=== PATIENT | male | born 1955 | race Caucasian/White ===

== ENCOUNTER 2019-08-28 09:32 | Inpatient (IN) ==
[2019-08-29] MEDS ORDERED: TYLENOL PO PRN (13:23)
[2019-08-29] MEDS ORDERED: NICODERM PATCH TD PRN (13:23)
[2019-08-29] MEDS ORDERED: ATARAX PO PRN (13:23)
[2019-08-29] MEDS ORDERED: BENTYL PO PRN (13:23)
[2019-08-29] MEDS ORDERED: ROBAXIN PO PRN (13:23)
[2019-08-29] MEDS ORDERED: PHENOBARBITAL IV PRN (13:23)
[2019-08-29] MEDS ORDERED: ZOFRAN ODT PO PRN (13:23)
[2019-08-29] MEDS ORDERED: SINEMET 25/100 PO PRN (13:23)
[2019-08-29] MEDS ORDERED: MOTRIN PO PRN (13:23)
[2019-08-29] MEDS ORDERED: D5W 1,000 ML IV PRN (13:23)
[2019-08-29] MEDS ORDERED: SENOKOT PO PRN (13:23)
[2019-08-29] MEDS ORDERED: DESYREL PO PRN (13:23)
[2019-08-29] MEDS ORDERED: ZOFRAN IV PRN (13:23)
[2019-08-29] MEDS ORDERED: TUBERSOL ID ONE (13:23)
[2019-08-29] MEDS ORDERED: DULCOLAX PR PRN (13:23)
[2019-08-29] MEDS ORDERED: MAALOX PLUS LIQUID PO PRN (13:23)
[2019-08-29] MEDS ORDERED: SEROQUEL PO PRN (13:23)
[2019-08-29] MEDS ORDERED: LIBRIUM PO PRN (13:23)
[2019-08-29] MEDS ORDERED: IMODIUM PO PRN (13:23)
[2019-08-29 14:01] LABS: HEMATOCRIT 34.1 % (42.0-52.0); HEMOGLOBIN 11.2 g/dL (14.0-18.0); MCH 30.4 PG (27-31); MCHC 32.8 g/dL (33-37); MCV 92.7 FL (81-99); MPV 9.4 FL (7.4-10.4); RBC 3.68 XMIL (4.7-6.1); RDW 13.2 % (11.5-14.5); WBC 6.92 X1000 (4.8-10.8)
[2019-08-29 14:21] LABS: AMYLASE 41 U/L (20-200); LIPASE 22 U/L (13-60)
[2019-08-29 14:25] LABS: AGAP 10; ALBUMIN 3.8 g/dL (3.5-5.0); ALKALINE PHOSPHATASE 86 U/L (32-122); BUN 7 mg/dL (8-22); CALCIUM 9.1 mg/dL (8.8-10.2); CHLORIDE 104 mmol/L (98-107); COSMO 280; CREATININE 0.9 mg/dL (0.7-1.2); ESTIMATED GFR > 60; GLUCOSE 115 mg/dL (70-104); GOT 20 U/L (10-34); GPT 9 U/L (10-44); SODIUM 141 mmol/L (136-145); TCO2 27 mmol/L (25-35)
[2019-08-29] MEDS: SUBOXONE 2 MG/0.5 MG FILM SL SCH (14:28)
[2019-08-29] MEDS: CYMBALTA PO SCH (14:28)
[2019-08-29 14:32] LABS: URINE SOURCE VOIDED
[2019-08-29 14:36] LABS: BILIRUBIN URINE NEGATIVE (NEGATIVE); BLOOD URINE 3+ (NEGATIVE); CLARITY CLEAR (CLEAR); COLOR YELLOW; GLUCOSE URINE NEGATIVE (NEGATIVE); KETONE URINE 1+(Small) mg/dL (NEGATIVE); LEUKOCYTES URINE NEGATIVE (NEGATIVE); NITRITE URINE NEGATIVE (NEGATIVE); PH URINE 6.5; PROTEIN URINE NEGATIVE (NEGATIVE); UROBILINOGEN URINE NORMAL
[2019-08-29 14:42] LABS: URINE BACTERIA NEGATIVE /HFP; URINE EPITHELIAL CELLS <10 /HPF (<10); URINE WBC <10 /HPF (<10)
[2019-08-29 14:45] LABS: INR 1.1; PROTIME 14.8 Seconds (11.0-16.0)
[2019-08-29 15:00] LABS: UR AMPHETAMINES QUAL NONE DETECTED (NONE DETECT); UR BARBITUATES QUAL NONE DETECTED (NONE DETECT); UR BENZODIAZEPIN QUAL NONE DETECTED (NONE DETECT); UR CANNABINOIDS QUAL PRESUMPTIVE POSITIVE (NONE DETECT); UR COCAINE QUAL NONE DETECTED (NONE DETECT); UR METHADONE QUAL NONE DETECTED (NONE DETECT); UR METHAMPHETAMINE QUAL NONE DETECTED (NONE DETECT); UR OPIATES QUAL PRESUMPTIVE POSITIVE (NONE DETECT); UR OXYCODONE QUAL PRESUMPTIVE POSITIVE (NONE DETECT); UR PCP QUAL NONE DETECTED (NONE DETECT); UR PROPOXYPHENE QUAL NONE DETECTED (NONE DETECT); UR TCA QUAL NONE DETECTED (NONE DETECT)
[2019-08-29] MEDS ORDERED: FLU VACCINE IM ONE (16:15)
[2019-08-29] MEDS: ATARAX PO SCH (20:50)
[2019-08-29] MEDS: DESYREL PO SCH (20:50)
[2019-08-30] MEDS: CYMBALTA PO SCH ×2 (01:22→13:38)
[2019-08-30] MEDS: SUBOXONE 2 MG/0.5 MG FILM SL SCH ×2 (01:22→13:38)
[2019-08-30] MEDS: PROTONIX PO SCH (06:14)
[2019-08-30] MEDS: SYNTHROID PO SCH ×2 (06:14)
[2019-08-30] MEDS ORDERED: KLOR-CON PO ONE (08:18)
[2019-08-30] MEDS ORDERED: SYNTHROID PO SCH (09:00)
[2019-08-30] MEDS: FOLIC ACID PO SCH (09:30)
[2019-08-30] MEDS: FLORINEF PO SCH (09:30)
[2019-08-30] MEDS: VITAMIN B-1 PO SCH (09:30)
[2019-08-30] MEDS: THERA M PLUS PO SCH (09:30)
[2019-08-30] MEDS: ATARAX PO SCH ×2 (09:31→20:38)
[2019-08-30] MEDS: DESYREL PO SCH (20:38)
[2019-08-31] MEDS: SUBOXONE 2 MG/0.5 MG FILM SL SCH ×2 (02:19→14:06)
[2019-08-31] MEDS: CYMBALTA PO SCH ×2 (02:20→14:06)
[2019-08-31] MEDS: PROTONIX PO SCH ×2 (05:56→06:08)
[2019-08-31] MEDS: SYNTHROID PO SCH ×4 (05:56→06:09)
[2019-08-31] MEDS: FOLIC ACID PO SCH (09:19)
[2019-08-31] MEDS: THERA M PLUS PO SCH (09:20)
[2019-08-31] MEDS: VITAMIN B-1 PO SCH (09:20)
[2019-08-31] MEDS: ATARAX PO SCH ×2 (09:20→20:43)
[2019-08-31] MEDS: FLORINEF PO SCH (09:20)
--- NOTE | 2019-08-31 09:21 | PROGRESS NOTE ---
DATE: 08/30/2019 SUBJECTIVE: Patient notes he is still having some symptoms. He is still having some nausea, abdominal pain. Still feels though his skin is crawling at times, although Suboxone helps. Notes that he does not think he is on enough Suboxone as he used to be on 8 twice a day. PHYSICAL EXAMINATION: Vital Signs: Reviewed. Temperature 97 degrees, pulse 85, respiratory rate 18, blood pressure 132/80. General: Patient is awake, alert. He is in no current respiratory distress. HEENT: Normocephalic. Neck: Supple. Cardiovascular: Regular rate. Chest: Clear. Abdomen: Soft. Extremities: Moves all extremities. ASSESSMENT: 1. Nausea and vomiting. 2. Abdominal pain. 3. Paresthesias. 4. Paroxysmal sweating. 5. Chronic pain. 6. Opiate abuse withdrawal and stabilization. PLAN: We will continue patient in the hospital. Continue to wean Suboxone as tolerated. Discussed with patient that yes, although he was on a higher dose, eventually he has to wean totally off and therefore we will continue the same plan. cc: Olu Leyva MD
[2019-08-31] MEDS: DESYREL PO SCH (20:44)
[2019-09-01] MEDS: CYMBALTA PO SCH ×3 (01:36→23:49)
[2019-09-01] MEDS: SUBOXONE 2 MG/0.5 MG FILM SL SCH (01:36)
[2019-09-01] MEDS: PROTONIX PO SCH (07:18)
[2019-09-01] MEDS: SYNTHROID PO SCH ×2 (07:18)
[2019-09-01] MEDS: ATARAX PO SCH ×2 (08:44→21:36)
[2019-09-01] MEDS: VITAMIN B-1 PO SCH (08:45)
[2019-09-01] MEDS: FLORINEF PO SCH (08:45)
[2019-09-01] MEDS: FOLIC ACID PO SCH (08:45)
[2019-09-01] MEDS: THERA M PLUS PO SCH (08:45)
[2019-09-01] MEDS ORDERED: TORADOL IV PRN (10:16)
[2019-09-01] MEDS: SUBUTEX SL SCH ×2 (12:32→21:33)
--- NOTE | 2019-09-01 16:31 | PROGRESS NOTE ---
DATE: 08/31/2019 SUBJECTIVE: Patient notes he still feels bad. Having lots of muscle aches and myalgias, still having back and hip pain. Denies any fevers, chills. Denies any sweating. Denies any skin crawling. PHYSICAL EXAMINATION: Vital Signs: Reviewed. He is awake, alert. He is in no respiratory distress. HEENT: Normocephalic. Neck: Supple. Cardiovascular: Regular rate. No murmurs. Chest: Chest clear, nonlabored. Abdomen: Soft, nondistended. Extremities: Moves all extremities. Neurologic: No focal changes. ASSESSMENT: 1. Hypokalemia resolved. 2. Nausea vomiting. 3. Abdominal pain. 4. Myalgias. 5. Paresthesias. 6. Chronic pain. 7. Chronic opiate abuse. PLAN: We will continue to wean Suboxone as tolerated. Continue counseling. Further orders as needed. cc: Olu Leyva MD
--- NOTE | 2019-09-01 19:51 | HISTORY AND PHYSICAL ---
CHIEF COMPLAINT: Nausea and vomiting. HISTORY OF PRESENT ILLNESS: The patient is a 64-year-old male who [facility]. The patient notes that he has been overtaking Suboxone and states he has to stop. He has been trying to cut down on his own, but has not been successful. He complains of muscle aches, nausea. No real vomiting. He has had some abdominal pain. SOCIAL HISTORY: The patient is , lives at home. He is on disability. He lives in [place]. PAST MEDICAL HISTORY: History of throat cancer in 2016, had lost from 235 down to 166 in approximately 4 months due to chemotherapy and radiation. He is in remission for the last year and a half. He has hypothyroidism, depression, chronic pain and recurrent anemia. PAST SURGICAL HISTORY: He has had multiple orthopedic surgeries including left shoulder, bilateral total knee, left ankle surgery 6 different times. He has had cervical spine surgery. MEDICATIONS: Synthroid 125, multivitamin daily, gabapentin 600 t.i.d., Cymbalta 30 b.i.d., trazodone 150, hydroxyzine, Requip and Florinef 0.1 b.i.d. ALLERGIES: No known drug allergies. REVIEW OF SYSTEMS: CINA score is elevated at 16 secondary to nausea, vomiting, abdominal pain, myalgias, paresthesias, occasional shaking chills, unable to sit still. He has some difficulty concentrating, decreased oral intake. Denies any chest pain or palpitations. Denies any fevers. Denies headaches, blurred vision or change in vision. Denies any focalized numbness, tingling or weakness in his extremities. SUBSTANCE ABUSE HISTORY: The patient has been in treatment in 1999 in [place] for 17 days, stayed sober less than a week. He was in treatment in 2001 in [facility] due to overusing Fentanyl. He remained sober for 3 to 4 months. He was in treatment again in 2018 at [place] and has been on Suboxone. FAMILY HISTORY: Noncontributory. PHYSICAL EXAMINATION: VITAL SIGNS: Reviewed. GENERAL: The patient is awake, alert. He is in no current respiratory distress, but he is somewhat ill-appearing. He is fidgety, anxious, nervous, unable sit still. Denies any chest pains or palpitations. HEENT: Normocephalic. NECK: Supple. CARDIOVASCULAR: Regular rate. CHEST: Clear. ABDOMEN: Soft. EXTREMITIES: Moves all extremities. NEUROLOGIC: No changes. ASSESSMENT: 1. Nausea and vomiting. 2. Abdominal pain. 3. Myalgias. 4. Paresthesias. 5. Paroxysmal sweating. 6. Opiate abuse, withdrawal and stabilization. 7. Hypertension. 8. Chronic depression. 9. Chronic pain. PLAN: We are going to admit the patient to the hospital. We will continue him on Suboxone, but we will slowly wean this down over the next several days. Expect him to be in the hospital 5-7 days due to this process. cc: Olu Leyva MD
[2019-09-01] MEDS: DESYREL PO SCH (21:37)
[2019-09-02] MEDS: PROTONIX PO SCH ×2 (05:52→07:29)
[2019-09-02] MEDS: SYNTHROID PO SCH ×4 (05:52→07:30)
[2019-09-02] MEDS: CYMBALTA PO SCH ×2 (07:29→14:48)
[2019-09-02] MEDS: SUBUTEX SL SCH (09:34)
[2019-09-02] MEDS: VITAMIN B-1 PO SCH (09:34)
[2019-09-02] MEDS: THERA M PLUS PO SCH (09:34)
[2019-09-02] MEDS: FOLIC ACID PO SCH (09:34)
[2019-09-02] MEDS: FLORINEF PO SCH (09:34)
[2019-09-02] MEDS: ATARAX PO SCH ×2 (09:34→20:55)
--- NOTE | 2019-09-02 13:59 | PROGRESS NOTE ---
DATE: 09/02/2019 SUBJECTIVE: The patient notes that he still is hurting in his back and legs. He states that he is feeling okay. He denies any tremors or sweating episodes but states that he still does not overall feel well. PHYSICAL EXAMINATION: Vital Signs: Temperature 98.7, pulse 73, respiratory 18, and blood pressure 125/70. General: The patient is awake and currently in no respiratory distress. HEENT: Normocephalic. Neck: Supple. CV: Regular rate. Chest: Clear. Abdomen. Soft. Extremities: He moves all extremities. ASSESSMENT: 1. Nausea and vomiting. 2. Abdominal pain. 3. Myalgias. 4. Paresthesias. 5. Paroxysmal sweating. 6. Opiate abuse withdrawal and stabilization. We will continue to wean. 7. Hypertension. 8. Chronic depression. 9. Chronic pain. PLAN: Since he no longer has an IV we are going to switch his Toradol to IM. We will continue to follow. We will continue to wean his Suboxone on a scheduled routine basis. Discussed with the patient that unfortunately he will have some withdrawal symptoms but the plan is to wean him totally off while he is in the hospital and hopefully transition to rehab on Wednesday, in 2 days. Continue to wean to Subutex 1 mg today and 1 mg tomorrow and then hopefully discharge from there. cc: Olu Leyva MD
[2019-09-02] MEDS: TORADOL IM PRN (18:21)
[2019-09-02] MEDS: DESYREL PO SCH (20:55)
[2019-09-03] MEDS: CYMBALTA PO SCH ×3 (01:03→23:09)
[2019-09-03] MEDS: SYNTHROID PO SCH ×2 (06:17)
[2019-09-03] MEDS: PROTONIX PO SCH (06:17)
[2019-09-03] MEDS: FLORINEF PO SCH ×2 (07:58→08:09)
[2019-09-03] MEDS: SUBUTEX SL SCH (07:59)
[2019-09-03] MEDS: FOLIC ACID PO SCH ×2 (07:59→08:09)
[2019-09-03] MEDS: VITAMIN B-1 PO SCH (07:59)
[2019-09-03] MEDS: ATARAX PO SCH ×2 (07:59→20:51)
[2019-09-03] MEDS: THERA M PLUS PO SCH (08:00)
--- NOTE | 2019-09-03 18:08 | PROGRESS NOTE ---
DATE: 09/03/2019 SUBJECTIVE: Patient notes that he is feeling better. Toradol did help. He is still having some muscle pain and back pain. Denies any current withdrawal symptoms. PHYSICAL EXAMINATION: Vital Signs: Reviewed. He is awake, alert. He is in no current respiratory distress. HEENT: Normocephalic. Neck: Supple. Cardiovascular: Regular rate. Chest: Clear. Abdomen: Soft. Extremities: Moves all extremities. Neurologic: No changes. ASSESSMENT: 1. Nausea and vomiting. 2. Abdominal pain. 3. Myalgias. 4. Paresthesias. 5. Paroxysmal sweating. 6. Opiate abuse withdrawal and stabilization. PLAN: We will continue patient in the hospital today. We will continue to attempt to wean Subutex completely off. Hopefully, he will tolerate this and can transition to further rehab tomorrow. cc: Olu Leyva MD
[2019-09-03] MEDS: TORADOL IM PRN (21:13)
[2019-09-03] MEDS: DESYREL PO SCH (23:09)
[2019-09-04] MEDS: CYMBALTA PO SCH (02:06)
[2019-09-04] MEDS: PROTONIX PO SCH (06:12)
[2019-09-04] MEDS: SYNTHROID PO SCH ×2 (06:12)
[2019-09-04 08:44] VITALS: BP 121/66
[2019-09-04] MEDS: ATARAX PO SCH (09:28)
[2019-09-04] MEDS: THERA M PLUS PO SCH (09:28)
[2019-09-04] MEDS: FLORINEF PO SCH (09:28)
[2019-09-04] MEDS: VITAMIN B-1 PO SCH (09:28)
[2019-09-04] MEDS: FOLIC ACID PO SCH (09:28)
== END 2019-09-04 12:37 | disposition home or self-care (01) | DRG 897 ==
LOC: P.DIRADM 08-29 09:13 → P.MEDSURG 08-29 10:08
PROVIDERS: ADMIT Family Medicine; ATTEND Family Medicine